=== PATIENT | female | born 1995 | race Hispanic/Latino ===

== ENCOUNTER 2017-09-05 09:22 | Emergency (ER) | payer SELFPAY ==
[2017-09-05 09:57] LABS: #Eosinphils 0.2 thou/uL (0.0-0.7); #Lymphocytes 1.7 thou/uL (1.20-3.40); #Monocytes 0.5 thou/uL (0.11-0.59); #Neutrophils 3.6 thou/uL (1.40-6.50); %Basophils 0.6 % (0.0-1.0); %Eosinophils 3.4 % (0.0-10.0); %Lymphocytes 28.5 % (21.0-51.0); %Monocytes 7.6 % (0.0-10.0); Hemoglobin 13.2 g/dL (12.0-16.0); Mean Corpuscular HGB CONC 33.5 g/dL (32.0-36.0); Mean Corpuscular Hemoglobin 28.3 pg (27.0-31.0); Mean Corpuscular Volume 84.4 fl (81.0-99.0); Mean Platelet Volume 7.4 fL (7.4-10.4); Platelet Count 219 thou/uL (130-400); RBC Distribution Width 11.9 % (11.5-14.5); Red Blood Cell (RBC) Count 4.65 mill/uL (4.20-5.40); White Blood Cell (WBC) Count 5.9 thou/uL (4.8-10.8)
[2017-09-05 10:07] LABS: Bilirubin Negative (Negative); Blood, Urine Trace (Negative); Clarity CLEAR (Clear); Glucose, Urine (Dipstick) Negative (Negative); Leukocyte Negative (Negative); Nitrite Negative (Negative); Protein, Urine (Dipstick) Negative (Neg-Trace); Specific Gravity, Urine 1.008 (1.002-1.036); Urobilinogen 0.2 mg/dL (0.2-1.0); pH, Urine 7.5 (5.0-9.0)
[2017-09-05 10:08] LABS: Bacteria/HPF None Seen HPF (None Seen); Hyaline Casts/LPF 0-3 HYALINE CAST LPF (0-3 Hyaline); RBC/HPF 0-3 HPF (0-3); Squamous Epithelial 0-3 HPF (0-3); WBC/HPF None Seen HPF (0-3)
--- NOTE | 2017-09-05 11:52 | ULT ---
PELVIC UTLRASOUND: HISTORY: A 21-year-old female with a history of with vaginal bleeding and cramping. FINDINGS: Transabdominal, transvaginal, and vascular duplex with color and spectral Doppler imaging is performe d. The uterus measures 9.6 x 4.5 x 6.0 cm and contains a small gestational sac measuring 0.8 cm. heart activity cannot be confirmed. The right ovary measures 1.9 x 2.5 x 3.7 cm. The left ovary measures 1.5 x 2.0 x 2.7 cm. IMPRESSION: Intrauterine gestational sac, heart tones could not be defined. Gestational age average by ult rasound 5 weeks 5 days with an estimated date of confinement of 05/03/18. Gestational age by last mens trual period 6 weeks 1 day with an estimated date of confinement of 04/30/18. A moderate amount of cul -de-sac fluid. Followup serum HCGs is recommended and consideration for followup ultrasound to docum ent viability. POS: [facility]
== END 2017-09-05 11:28 | disposition home or self-care (01) ==
LOC: ERS 09:22
DX: O20.0 Threatened abortion (principal); O99.341 Other mental disorders complicating pregnancy, first trimester; F41.9 Anxiety disorder, unspecified; F32.9 Major depressive disorder, single episode, unspecified; Z3A.01 Less than 8 weeks gestation of pregnancy
CPT/HCPCS: 36415; 76856; 81003; 81015; 84702; 85025; 86850; 86900; 86901

== ENCOUNTER 2018-04-17 08:12 | Day surgery (SDC) | payer MEDICAID, OTHER ==
[2018-04-17 08:51] VITALS: BP 123/79; TEMP 98.2; BMI 35.3
--- NOTE | 2018-04-18 07:48 | SS ---
DATE OF ADMISSION: 04/17/2018 DATE OF DISCHARGE: 04/17/2018 LABOR AND DELIVERY TRIAGE NOTE REGULAR PHYSICIAN: Mick Rodney MD EVALUATING PHYSICIAN: Toño Hassan MD CHIEF COMPLAINT: Contractions at home. HISTORY OF PRESENT ILLNESS: Ms. Santillan is a 22-year-old , G2, P 1-0-0-1 with an estimated date of confinement of 04/30/2018, who presents complaining of uterine contractions every 7 to 10 minutes at home since earlier this morning. She has had some spotting, but she denies ruptured membranes or heavy vaginal bleeding. Her care has been with Dr. Rodney and she reports no complications. PAST OBSTETRICAL HISTORY: Includes one uncomplicated vaginal delivery of a 7-pound 14-ounce infant. PAST MEDICAL HISTORY: None. PAST SURGICAL HISTORY: None. CURRENT MEDICATIONS: vitamins. ALLERGIES: NO KNOWN ALLERGIES. SOCIAL HISTORY: Denies tobacco, alcohol, or drug use. FAMILY HISTORY: Unremarkable. REVIEW OF SYSTEMS: Denies nausea, vomiting, fever, chills, ruptured membranes, or heavy vaginal bleeding. PHYSICAL EXAMINATION: VITAL SIGNS: Stable and she is afebrile in triage. ABDOMEN: Her abdomen is soft, nontender, and gravid. heart rate tracing is stable. Uterine contractions were seen every 7 to 8 minutes. Initial vaginal exam shows the cervix to be 3 cm dilated, 50% effaced with the vertex at -2 station per the labor nurse. The patient is hydrated over 2-hour interval and re-examined by the labor nurse. Cervical exam by a different labor nurse is reported as 3 cm dilated, 70% to 80% effaced with the vertex unchanged. heart rate tracing has remained stable throughout. Uterine contractions remained at every 7 minutes. ASSESSMENT: 1. 38-week intrauterine . 2. Latent phase labor. PLAN: I have discussed the case with Dr. Rodney, and at this point, he would like her to go home, rest, and hydrate there. She was given complete labor precautions and will return for increasing contractions, ruptured membranes, or vaginal bleeding. She understands all the above and is discharged home in good condition. Job ID: [id number]
== END 2018-04-17 12:07 | disposition home or self-care (01) ==
LOC: L&D/OP 08:12
PROVIDERS: ATTEND Family Medicine
DX: O47.1 False labor at or after 37 completed weeks of gestation (principal); O26.853 Spotting complicating pregnancy, third trimester; Z3A.38 38 weeks gestation of pregnancy; Z79.899 Other long term (current) drug therapy
CPT/HCPCS: 99283

== ENCOUNTER 2018-04-18 05:04 | Inpatient (IN) | payer MEDICAID, OTHER, SELFPAY ==
[2018-04-18 05:32] VITALS: BMI 35.9
[2018-04-18] MEDS ORDERED: Ondansetron PF 4 MG/2 ML Vial IVP PRN ×3 (05:43→18:08)
[2018-04-18] MEDS ORDERED: Acetaminophen 500 MG TAB PO PRN (05:43)
[2018-04-18] MEDS ORDERED: Meperidine HCl/PF 25 MG/ML VIAL IM/IV PRN (05:43)
[2018-04-18] MEDS ORDERED: Lidocaine 1% (PF) 30 ML VIAL SC PRN (05:43)
[2018-04-18] MEDS ORDERED: Promethazine HCl 25 MG/ML VIAL IM PRN ×2 (05:43→06:56)
[2018-04-18] MEDS ORDERED: HYDROcodone/Acetaminophen 5/325 mg Tablet PO PRN ×3 (05:43→18:08)
[2018-04-18] MEDS ORDERED: Butorphanol Tartrate 1 MG/ML VIAL SLOW IVP PRN (05:43)
[2018-04-18] MEDS ORDERED: Ibuprofen 800 MG TAB PO PRN (05:43)
[2018-04-18] MEDS ORDERED: NS / Oxytocin 40 units/1000ml 1,000 ML IV PRN (05:43)
[2018-04-18] MEDS ORDERED: NS w/ Oxytocin 10 units 500 ML IV SCH (05:45)
[2018-04-18] MEDS ORDERED: Lactated Ringer's 1,000 ML IV SCH ×2 (05:45)
[2018-04-18] MEDS ORDERED: Penicillin G Potassium 5 MILL.UNITS in Sodium Chloride 0.9% 100 ML IVPB SCH (05:45)
[2018-04-18] MEDS ORDERED: Fentanyl 4 mcg/Bup 0.1% Cadd 100 ML ONE ×2 (06:03→13:21)
[2018-04-18] MEDS ORDERED: Lidocaine 1.5% w/Epi 1:200K 30 ML VIAL (Epid Use) ONE (06:04)
[2018-04-18 06:10] LABS: Mean Corpuscular HGB CONC 32.3 g/dL (32.0-36.0); Mean Corpuscular Hemoglobin 25.8 pg (27.0-31.0); Mean Corpuscular Volume 79.8 fL (78.0-98.0); Mean Platelet Volume 9.3 fL (7.4-10.4); Platelet Count 180 thou/uL (130-400); Red Blood Cell (RBC) Count 4.27 mill/uL (4.20-5.40); White Blood Cell (WBC) Count 8.2 thou/uL (4.8-10.8)
[2018-04-18 06:44] LABS: HBSAg Index 0.29 S/CO (0-0.99); Hep B Surf Ag Non-Reactive S/CO (NonReactive)
[2018-04-18 06:53] LABS: Syphilis Antibody Nonreactive (Nonreactive); Syphilis Antibody Index 0.05 S/CO (<1.00 Non-Reactive)
[2018-04-18] MEDS ORDERED: diphenhydrAMINE 50 MG/ML VIAL IVP PRN (06:56)
[2018-04-18] MEDS ORDERED: Naloxone HCl 0.4 mg/ml Vial IVP PRN ×2 (06:56)
[2018-04-18] MEDS ORDERED: ePHEDrine/0.9% NaCl/PF SYRINGE 50 mg/10 ml SLOW IVP PRN (06:56)
[2018-04-18] MEDS ORDERED: Lactated Ringer's 500 ML IV PRN (06:56)
[2018-04-18] MEDS ORDERED: Eucerin (Mineral Oil/Petrolatum,White) 30 gm Jar TOP PRN (06:56)
[2018-04-18] MEDS ORDERED: Acetaminophen 325 MG TAB PO PRN (06:56)
[2018-04-18] MEDS ORDERED: Fentanyl 4 mcg/Bupivacaine 0.1% Cassette 100 ML EPIDURAL SCH (07:00)
[2018-04-18] MEDS ORDERED: Communication Order-Pharmacy FS SCH (07:00)
[2018-04-18] MEDS: Penicillin G 2.5 MILL.units 2.5 MILL.UNITS in Premix Bag 1 BAG IVPB SCH ×2 (10:02→14:00)
[2018-04-18] MEDS ORDERED: NS w/ Oxytocin 10 units 500 ML ONE (11:27)
[2018-04-18] MEDS ORDERED: Ondansetron PF 4 MG/2 ML Vial ONE (13:15)
[2018-04-18 17:32] LABS: Actual Bicarbonate (HCO3a) 21.2 mEq/L (22-28); Base Excess (BEa) -8.4 mEq/L (-2.0 to +3.0)
[2018-04-18] MEDS ORDERED: Lanolin Ointment 7 GM TUBE TOP PRN (18:08)
[2018-04-18] MEDS ORDERED: Bisacodyl 10 MG SUPP PR PRN (18:08)
[2018-04-18] MEDS ORDERED: NS / Oxytocin 40 units/1000ml 1,000 ML IV SCH (18:08)
[2018-04-18] MEDS ORDERED: Benzocaine/Menthol 20-0.5% 60 ML CAN TOP PRN (18:08)
[2018-04-18] MEDS ORDERED: Milk Of Magnesia 30 ML UDCUP PO PRN (18:08)
[2018-04-18] MEDS ORDERED: diphenhydrAMINE 25 MG CAP PO PRN (18:08)
[2018-04-18] MEDS: Ibuprofen 800 MG TAB PO SCH (20:04)
[2018-04-18] MEDS: HYDROcodone/Acetaminophen 5/325 mg Tablet PO PRN (20:59)
[2018-04-18] MEDS: Docusate Calcium (SURFAK) 240 MG CAP PO SCH (20:59)
[2018-04-19] MEDS: HYDROcodone/Acetaminophen 5/325 mg Tablet PO PRN ×2 (04:32→13:59)
[2018-04-19] MEDS: Ibuprofen 800 MG TAB PO SCH ×2 (04:32→13:59)
[2018-04-19 06:27] LABS: Hemoglobin 8.8 g/dL (12.0-16.0); Mean Corpuscular HGB CONC 32.7 g/dL (32.0-36.0); Mean Corpuscular Hemoglobin 26.7 pg (27.0-31.0); Mean Corpuscular Volume 81.7 fL (78.0-98.0); Mean Platelet Volume 9.2 fL (7.4-10.4); Platelet Count 149 thou/uL (130-400); RBC Distribution Width 13.1 % (11.5-14.5); Red Blood Cell (RBC) Count 3.27 mill/uL (4.20-5.40); White Blood Cell (WBC) Count 10.5 thou/uL (4.8-10.8)
[2018-04-19] MEDS ORDERED: Prenatal Vitamin 1 TAB PO SCH (09:00)
[2018-04-19] MEDS: Docusate Calcium (SURFAK) 240 MG CAP PO SCH (09:31)
[2018-04-19] MEDS: Ferrous Sulfate 325 MG TAB PO SCH ×2 (09:31→17:36)
[2018-04-19 17:27] VITALS: BP 117/65; TEMP 98.1
== END 2018-04-19 18:50 | disposition home or self-care (01) | DRG 807 ==
LOC: L&D/OP 05:04 → L&D 05:44 → 3SW 20:31
PROVIDERS: ADMIT Family Medicine; ATTEND Family Medicine
PROC: 10907ZC Drainage of Amniotic Fluid, Therapeutic from Products of Conception, Via Natural or Artificial Opening (ICD-10-PCS; principal; 2018-04-18)
PROC: 10E0XZZ Delivery of Products of Conception, External Approach (ICD-10-PCS; 2018-04-18)
DX: O99.824 Streptococcus B carrier state complicating childbirth (principal); Z37.0 Single live birth; Z3A.38 38 weeks gestation of pregnancy; O66.0 Obstructed labor due to shoulder dystocia
CPT/HCPCS: 36415; 51702; 82805; 85027; 86780; 86850; 86900; 86901; 87340; 99285; J2001; J2405; J2540; J7050